=== PATIENT | male | born 2000 | race African-American/Black ===

== ENCOUNTER 2019-07-16 09:49 | Emergency (ER) | payer MEDICAID ==
[~2019-07-16] VITALS: Ht 180.3 cm; Wt 84.0 kg
[2019-07-16 10:35] VITALS: BP 118/78
== END 2019-07-16 10:36 | disposition home or self-care (01) ==
LOC: ER 09:49
DX: Z03.818 Encounter for observation for suspected exposure to other biological agents ruled out (principal); Z71.89 Other specified counseling; R51 Headache; M79.18 Myalgia, other site
CPT/HCPCS: 99282